=== PATIENT | female | born 1950 | race Two or more races ===

== ENCOUNTER 2025-07-27 07:00 | Day surgery (SDC) | payer OTHER ==
[2025-07-23 10:27] LABS: URINE APPEARANCE Clear; URINE BILIRRUBIN Negative (NEGATIVE); URINE BLOOD Negative; URINE COLOR Yellow; URINE KETONE Negative (NEGATIVE); URINE LEUKOCYTE Small; URINE NITRATE Negative; URINE PROTEIN Negative (NEGATIVE); URINE UROBILINOGEN 0.2 E.U./dl
[2025-07-23 10:28] LABS: BASO % 0.5 % (0.1-1.2); EOS # 0.06 (0.04-0.54); EOS % 0.8 % (0.7-7.0); LYMPH # 2.08 (1.18-3.74); LYMPH % 28.0 % (19.3-53.1); MEAN PLATELET VOLUME 10.50 fl (9.4-12.4); MONO # 0.66 (0.24-0.82); MONO % 8.9 % (4.7-12.5); NEUT # 4.58 (1.56-6.13); NEUT % 61.5 % (34.0-71.1); RED CELL DISTRIBUTION WIDTH 14.0 % (11.6-14.4)
[2025-07-23 10:29] LABS: URINE BACTERIA 149.9 uL (0.0-1933); URINE EPITHELIAL CELLS 6.1 uL (0.0-38.8); URINE RBC 10.7 uL (0.0-20.8); URINE WBC 179.9 uL (0.0-23.2)
[2025-07-23 10:30] LABS: URINE CAST 0.00 uL (0.0-1.40); URINE GLUCOSE >=1000 MG/DL (NEGATIVE)
[2025-07-23 10:49] LABS: INR 1.01
[2025-07-23 10:52] VITALS: BP 103/71
[2025-07-23 11:10] LABS: BUN CREA RATIO 18.0 (7.0-25.0); CREATININE SERUM 1.02 mg/dL (0.55-1.02); GFR 52.97; GLUCOSE FASTING 93.0 mg/dL (65-100); OSMOLALITY SERUM 287.0 MOSM/KG (275-295)
[~2025-07-27] VITALS: Ht 160 cm; Wt 74.8 kg
[~2025-07-27 07:00] MED LIST: ATACAND4 MG; EZALLOR SPRINKLE5 MG; KLONOPIN; LEXAPRO20 MG PO; LYRICA150 MG PO; TRIJARDY XR 101 EACH
[2025-07-27] MEDS ORDERED: CEFAZOLIN SODIUM 1,000 MG VIAL ONE (08:38)
[2025-07-27] MEDS ORDERED: KETOROLAC TROMETHAMINE 60 MG VIAL IM ONE (08:51)
[2025-07-27] MEDS ORDERED: EPINEPHRINE HCL/PF 1 MG/ML AMPUL ONE (10:43)
[2025-07-27] MEDS ORDERED: DUI500 PO (11:51)
[2025-07-27] MEDS ORDERED: ACETAMINOPHEN-1 EAC2 PO (11:52)
[2025-07-27] MEDS ORDERED: ACETAMINOPHEN WITH CODEINE 1 UDTAB TABLET PO PRN (12:00)
[2025-07-27] MEDS ORDERED: MORPHINE SULFATE 4 MG/ML CARTRIDGE IV ONE (12:00)
[2025-07-27] MEDS ORDERED: KETOROLAC TROMETHAMINE 30 MG VIAL IV ONE (13:10)
[2025-07-27] MEDS ORDERED: KETOROLAC TROMETHAMINE 30 MG VIAL ONE (13:23)
[2025-07-27] MEDS ORDERED: CEFADROXIL 500 MG CAPSULE PO SCH (21:00)
== END 2025-07-27 16:50 | disposition home or self-care (01) ==
LOC: CIR.AMB 07:00
PROVIDERS: ATTEND Orthopaedic Surgery Sports Medicine
DX: M75.122 Complete rotator cuff tear or rupture of left shoulder, not specified as traumatic (principal); M12.212 Villonodular synovitis (pigmented), left shoulder; Z88.8 Allergy status to other drugs, medicaments and biological substances

== ENCOUNTER 2025-08-16 14:02 | Emergency (ER) | payer OTHER ==
[~2025-08-16] VITALS: Ht 160 cm; Wt 72.6 kg
[~2025-08-16 14:02] MED LIST changes: +ACETAMINOPHEN-1 EAC2 PO; +DUI500 PO
[2025-08-16] MEDS ORDERED: 0.9 % SODIUM CHLORIDE 500 ML IV STA (15:36)
[2025-08-16] MEDS ORDERED: KETOROLAC TROMETHAMINE 15 MG VIAL IV STA (16:08)
[2025-08-16] MEDS ORDERED: KETOROLAC TROMETHAMINE 30 MG VIAL ONE (16:53)
[2025-08-16 16:54] LABS: BASO % 0.5 % (0.1-1.2); EOS # 0.03 (0.04-0.54); EOS % 0.2 % (0.7-7.0); LYMPH # 2.30 (1.18-3.74); LYMPH % 19.1 % (19.3-53.1); MEAN PLATELET VOLUME 10.40 fl (9.4-12.4); MONO # 0.86 (0.24-0.82); MONO % 7.1 % (4.7-12.5); NEUT # 8.78 (1.56-6.13); NEUT % 72.8 % (34.0-71.1); RED CELL DISTRIBUTION WIDTH 13.8 % (11.6-14.4)
[2025-08-16 17:35] LABS: ALT/SGPT 21.0 U/L (12-78); AST/SGOT 17.0 U/L (15-37); BILIRUBIN TOTAL 0.84 mg/dL (0.3-1.2); BUN CREA RATIO 23.0 (7.0-25.0); CREATININE SERUM 1.11 mg/dL (0.55-1.02); GFR 48.05; GLOBULINA 4.2 G/DL (2.4-3.5); GLUCOSE FASTING 150.0 mg/dL (65-100); OSMOLALITY SERUM 285.0 MOSM/KG (275-295)
[2025-08-16] MEDS ORDERED: TRAMADOL HCL 50 MG TABLET PO ONE (19:15)
[2025-08-16] MEDS ORDERED: TRAMADOL HCL E100 M1 PO (19:28)
== END 2025-08-16 20:36 | disposition home or self-care (01) ==
LOC: ER 14:03
PROVIDERS: General Practice
DX: S49.82XA Other specified injuries of left shoulder and upper arm, initial encounter (principal); W19.XXXA Unspecified fall, initial encounter; Y93.89 Activity, other specified; Y92.098 Other place in other non-institutional residence as the place of occurrence of the external cause; Y99.8 Other external cause status; R42 Dizziness and giddiness; M25.512 Pain in left shoulder
CPT/HCPCS: 36415; 70450; 70490; 72040; 73030; 96365; 99284; J1885; J7042